=== PATIENT | male | born 1945 | race Caucasian/White ===

== ENCOUNTER → 2021-10-20 | Outpatient (CLI) | payer BC ==
[~2021-10-20] VITALS: Ht 205.7 cm; Wt 91.2 kg
[~2021-10-20] MED LIST: ASPIRIN325 PO; ATORVASTATIN CA40 MG PO; CALCIUM500 MG PO; CARAFATE 1 GM TA1 G1 PO; CEPHALEXIN 500500 M3 PO; CLONAZEPAM 0.50.5 M1 PO; CYTOMEL 25 MCG25 MC1 PO; DULOXETINE HCL30 MG PO; FAMOTIDINE40 MG PO; FISH OIL 1,0001 EAC9 PO; GABAPENTIN600 M1 PO; GERD MEDICATION; HYDROCODON-ACE1 EAC5 PO; HYDROCODONE-AP1 EAC6 PO; LEVO-T75 MCG PO; LEXAPRO20 MG; LORTAB 5 MG/5001 TAB PO; OMEGA-31000 M1 PO; PROTONIX 20 MG20 M1 PO; PROTONIX40 M3 PO; ROSUVASTATIN CA40 MG PO; SORINE 80 MG TA80 M1 PO; SOTALOL120 MG PO; VITAMIN D2000 UNIT PO; XANAX 0.5 MG0.5 MG PO; XARELTO20 MG PO; ZETIA10 MG PO
[2021-10-20 10:41] VITALS: BP 104/69
--- NOTE | 2021-10-20 11:26 | NUR ---
Pain Clinic Assessment: 1. History of Osteoarthritis: Not Applicable History of Rheumatoid Arthritis: Not Applicable 2. Height: 6 ft. 9 in. 205.7 cm. Weight: 201.0 lb. oz. 91.173 kg. Patient's BMI: 21.5 3. Vital Signs: BP: 104/69 Pulse: 67 Resp: 16 Temp: 02 Sat: 96 ECG Mon: 4. Pain Intensity: 10 5. Fall Risk: Dizziness: N Needs help standing or walking: N Fallen in the last 3 months: Y Fall risk comments: 6. Patient on Blood Thinner: XARELTO 7. History of Hypertension: N 8. Opioid Therapy greater than 6 weeks: Opiate Contract Signed: 9. Risk Assessment Tool Provided: 0 low risk 10. Functional Assessment Tool: 63/70 11. Recreational Drug Use: Never Drug Type: Tobacco Use: Never Smoker Tobacco Type: Amount or Packs/day: How Many Years: Alcohol Use: No Frequency: Quant:
== END ==
LOC: PAIN 09:29
PROVIDERS: ATTEND Anesthesiology Pain Medicine
DX: R68.84 Jaw pain (principal); G50.0 Trigeminal neuralgia; I25.10 Atherosclerotic heart disease of native coronary artery without angina pectoris; I48.91 Unspecified atrial fibrillation; Z88.8 Allergy status to other drugs, medicaments and biological substances; Z79.899 Other long term (current) drug therapy

== ENCOUNTER → 2021-11-03 | Outpatient (CLI) | payer BC ==
[~2021-11-03] VITALS: Ht 182.9 cm; Wt 93.3 kg
[~2021-11-03] MED LIST changes: +ADVIL100 M3 PO; +TEGRETOL100 MG/5 M PO
[2021-11-03 11:02] VITALS: BP 113/60
--- NOTE | 2021-11-03 11:13 | NUR ---
Pain Clinic Assessment: 1. History of Osteoarthritis: Not Applicable History of Rheumatoid Arthritis: Not Applicable 2. Height: 6 ft. 0 in. 182.9 cm. Weight: 205.6 lb. oz. 93.260 kg. Patient's BMI: 27.9 3. Vital Signs: BP: 113/60 Pulse: 56 Resp: 20 Temp: 02 Sat: 97 ECG Mon: 4. Pain Intensity: 15 WHEN EATS 3 NO EATING 5. Fall Risk: Dizziness: N Needs help standing or walking: N Fallen in the last 3 months: N Fall risk comments: 6. Patient on Blood Thinner: XARELTO 7. History of Hypertension: N 8. Opioid Therapy greater than 6 weeks: Opiate Contract Signed: 9. Risk Assessment Tool Provided: 0 low risk 10. Functional Assessment Tool: 63/70 11. Recreational Drug Use: Never Drug Type: Tobacco Use: Never Smoker Tobacco Type: Amount or Packs/day: How Many Years: Alcohol Use: No Frequency: Quant:
== END ==
LOC: PAIN 08:58
PROVIDERS: ATTEND Anesthesiology Pain Medicine
DX: R51.9 Headache, unspecified (principal); Z88.8 Allergy status to other drugs, medicaments and biological substances; Z79.899 Other long term (current) drug therapy